=== PATIENT | male | born 1935 | race Caucasian/White ===

== ENCOUNTER 2017-01-08 12:19 | Day surgery (SDC) | payer MEDICARE, OTHER ==
[2017-01-08] MEDS ORDERED: SODIUM CHLORID 0.9% 500 ML IV PRN (13:00)
[2017-01-08] MEDS ORDERED: INSULIN HUMAN REGULAR 1,000 UNITS/10 ML VIAL SQ PRN (13:00)
[2017-01-08] MEDS ORDERED: LACTATED RINGER'S 1000 ML IV PRN (13:00)
[2017-01-08] MEDS ORDERED: POVIDONE IODINE 5% (ANTISEPSIS KIT) 4 APPLICATIONS EACH NARE PRN (13:00)
[2017-01-08] MEDS ORDERED: ceFAZolin 2 GM PREMIX 50 ML IV SCH (13:00)
[2017-01-08] MEDS ORDERED: CHLORHEXIDINE GLUCONATE 2 % 1 PACK (2 CLOTHS) TOPICAL PRN (13:00)
[2017-01-08] MEDS ORDERED: METOPROLOL TARTRATE 25 MG TAB PO PRN (13:00)
[2017-01-08] MEDS ORDERED: APIX5TAB PO (13:42)
[2017-01-08] MEDS ORDERED: LORA10TA PO (13:42)
[2017-01-08] MEDS ORDERED: ATEN25TA PO (13:42)
[2017-01-08] MEDS ORDERED: AMIO200T PO (13:42)
[2017-01-08] MEDS ORDERED: METF500T PO (13:42)
[2017-01-08] MEDS ORDERED: NASA5.2S2 EACH NARE (13:42)
[2017-01-08] MEDS ORDERED: SIMV20TA PO (13:42)
[2017-01-08] MEDS ORDERED: LISI40TA PO (13:42)
--- NOTE | 2017-01-09 06:05 | EKG ---
Date Performed: 01/08/2017 Time Performed: 14:27:18 PTAGE: 81 years EKG: Sinus bradycardia with PAC(s) with 1st degree A-V block. Prolonged QT interval Abnormal R w ave progression Inferior/lateral ST-T changes are nonspecific Abnormal ECG PREVIOUS TRACING : 01/08/2017 12.42 Compared to the previous tracing a fib no longer present DOCTOR: Holly Hernandez Interpretating Date/Time 01/09/2017 06:05:02
--- NOTE | 2017-01-09 06:14 | EKG ---
Date Performed: 01/08/2017 Time Performed: 12:42:00 PTAGE: 81 years EKG: Atrial fibrillation. Prolonged QT interval Poor R wave progression - probable normal varian t Inferior/lateral T wave changes are nonspecific Abnormal ECG NO PREVIOUS TRACING DOCTOR: Holly Hernandez Interpretating Date/Time 01/09/2017 06:14:30
--- NOTE | 2017-01-09 13:30 | CF ---
cc: MALIHA CALDERÓN M.D. DATE 01/08/2017 PREOPERATIVE DIAGNOSIS 1. Mitral regurgitation 2. Atrial fibrillation CONSENT A full informed consent was obtained prior to the procedure. The risks of , bleeding, perforation, aspiration, foreseen and unforeseen complications were reviewed. The patient fully appeared to understand the risks. PROCEDURE 1. CRISTIANO 2. Cardioversion PROCEDURAL STATEMENT The patient was prepped and draped in the usual manner. The patient underwent a full CRISTIANO. Following this, the patient had a cardioversion. FINDINGS There was evidence of mild to moderate mitral regurgitation with evidence of mild mitral prolapse. There was evidence of mild left atrial enlargement. The aortic valve was trileaflet. There was evidence of trace aortic regurgitation. LV function was normal. The interventricular septum intact. The intraatrial septum intact. The right ventricle and right atrium not enlarged. Doppler study showed mild to moderate mitral regurgitation. The left atrial appendage was free of thrombus. CONCLUSION 1. Left atrial appendage clear of thrombus. 2. Mild to moderate mitral regurgitation. PLAN Proceed with cardioversion. Maliha Calderón MD, FRCP,FACC OCTAVIO/TIMOTHY /2:22 PM /1:15 PM
--- NOTE | 2017-01-09 13:30 | MR ---
cc: MALIHA CALDERÓN M.D. DATE: 01/08/2017 PROCEDURE Cardioversion. INDICATION Atrial fibrillation. PROCEDURE Following a CRISTIANO the left atrial appendage is free of thrombus. This patient was given a 200 joule synchronized shock. The patient converted to sinus bradycardia with PACs. CONCLUSION Successful cardioversion to sinus bradycardia with PACs. Maliha Calderón MD, FRCP,[facility]/BT /2:24 PM /1:19 PM
== END 2017-01-08 14:32 | disposition home or self-care (01) ==
LOC: HDIC 12:19 → HSDC 12:19
PROVIDERS: ATTEND Internal Medicine Cardiovascular Disease
DX: I48.91 Unspecified atrial fibrillation (principal); I34.0 Nonrheumatic mitral (valve) insufficiency; R01.1 Cardiac murmur, unspecified; I10 Essential (primary) hypertension; E78.5 Hyperlipidemia, unspecified; E11.9 Type 2 diabetes mellitus without complications; K58.9 Irritable bowel syndrome, unspecified; J30.9 Allergic rhinitis, unspecified
CPT/HCPCS: 00410; 92960; 93005; 93312; 93320; 93325; J0690

== ENCOUNTER 2017-02-04 21:39 | Emergency (ER) | payer MEDICARE, OTHER ==
[~2017-02-04] VITALS: Ht 172.7 cm; Wt 80.0 kg
[~2017-02-04 21:39] MED LIST: AMIO200T PO; APIX5TAB PO; ATEN25TA PO; LISI40TA PO; LORA10TA PO; METF500T PO; NASA5.2S2 EACH NARE; SIMV20TA PO
[2017-02-04 21:43] VITALS: BP 138/68; PULSE 54; RESP 18; TEMP 98.1; O2SAT 96
[2017-02-04 22:03] VITALS: BP 141/65; PULSE 56; RESP 16; O2SAT 97
--- NOTE | 2017-02-04 22:15 | PD ---
HPI Chief Complaint: General Weakness Time Seen by Provider: 21:56 Travel History International Travel<30 days: No Contact w/Intl Traveler<30days: No Traveled to known affect area: No History of Present Illness HPI This 81-year-old male says he was swimming laps. He swam his last flap and then he felt extremely weak. he was unable to stand up both of his legs were weak and he had no energy. He rested and then he felt okay and was able to get up. He says he has not been feeling well for some time and is undergoing tests with Dr. hernandez. He is known for a long time that he has a heart murmur. On January 08 he had cardioversion done and was converted from atrial fibrillation to sinus rhythm. He is undergoing a series of tests with Dr. Moran an appointment tomorrow. He did not have any chest pain PFSH Past Medical History Hx Anticoagulant Therapy: Yes (ELIQUIS) Cardiovascular Problems: Yes (AFIB) Diabetes: Yes Social History Tobacco Use: No Allergies-Medications (Allergen,Severity, Reaction): Coded Allergies: No Known Allergies (Unverified , 02/04/17) Reported Meds & Prescriptions Reported Meds & Active Scripts Active Reported Metformin (Metformin HCl) 500 Mg Tab 500 Mg PO BIDPC With meals Nasalcrom Nasal Inh (Cromolyn Nasal Inh) 5.2 Mg/Act Cecilia 2 Cecilia EACH NARE QID 1 spray per nostril Loratadine 10 Mg Tab 10 Mg PO DAILY Lisinopril 40 Mg Tab 40 Mg PO DAILY Simvastatin 20 Mg Tab 20 Mg PO DAILY Atenolol 25 Mg Tab 25 Mg PO DAILY Amiodarone (Amiodarone HCl) 200 Mg Tab 200 Mg PO BID Eliquis (Apixaban) 5 Mg Tab 5 Mg PO BID Review of Systems General / Constitutional: No: Fever, Chills HENT: No: Headaches, Vertigo Cardiovascular: No: Chest Pain or Discomfort, Palpitations Respiratory: No: Cough, Shortness of Breath Gastrointestinal: No: Nausea, Vomiting Genitourinary: No: Frequency, Dysuria Musculoskeletal: No: Myalgias, Arthralgias Skin: No Rash, No Itching Neurologic: Positive: Weakness, No: Syncope, Focal Abnormalities Hematologic/Lymphatic: No: Easy Bruising Physical Exam Narrative GENERAL: Well-developed male SKIN: Focused skin assessment warm/dry. HEAD: Atraumatic. Normocephalic. EYES: Pupils equal and round. No scleral icterus. No injection or drainage. ENT: No nasal bleeding or discharge. Mucous membranes pink and moist. NECK: Trachea midline. No JVD. CARDIOVASCULAR: Regular rate and rhythm. There is a loud systolic murmur RESPIRATORY: No accessory muscle use. Clear to auscultation. Breath sounds equal bilaterally. GASTROINTESTINAL: Abdomen soft, non-tender, nondistended. Hepatic and splenic margins not palpable. MUSCULOSKELETAL: No obvious deformities. No clubbing. No cyanosis. Trace edema bilaterally. NEUROLOGICAL: Awake and alert. No obvious cranial nerve deficits. Motor grossly within normal limits. Normal speech. PSYCHIATRIC: Appropriate mood and affect; insight and judgment normal. Data Data Last Documented VS Vital Signs Date Time Temp Pulse Resp B/P Pulse Ox O2 Delivery O2 Flow Rate FiO2 02/04/17 23:10 52 16 127/58 95 Room Air 02/04/17 21:43 98.1 Orders Electrocardiogram (02/04/17 22:12) Complete Blood Count With Diff (02/04/17 22:12) Comprehensive Metabolic Panel (02/04/17 22:12) Troponin I (02/04/17 22:12) B-Type Natriuretic Peptide (02/04/17 22:12) Magnesium (Mg) (02/04/17 22:12) Thyroid Stimulating Hormone (02/04/17 22:12) Labs Laboratory Tests Test 02/04/17 22:58 White Blood Count 11.9 TH/MM3 Red Blood Count 4.17 MIL/MM3 Hemoglobin 13.5 GM/DL Hematocrit 39.8 % Mean Corpuscular Volume 95.3 FL Mean Corpuscular Hemoglobin 32.3 PG Mean Corpuscular Hemoglobin 33.8 % Concent Red Cell Distribution Width 13.0 % Platelet Count 155 TH/MM3 Mean Platelet Volume 8.6 FL Neutrophils (%) (Auto) 77.5 % Lymphocytes (%) (Auto) 12.1 % Monocytes (%) (Auto) 8.7 % Eosinophils (%) (Auto) 0.9 % Basophils (%) (Auto) 0.8 % Neutrophils # (Auto) 9.3 TH/MM3 Lymphocytes # (Auto) 1.4 TH/MM3 Monocytes # (Auto) 1.0 TH/MM3 Eosinophils # (Auto) 0.1 TH/MM3 Basophils # (Auto) 0.1 TH/MM3 CBC Comment DIFF FINAL Differential Comment Sodium Level 140 MEQ/L Potassium Level 4.0 MEQ/L Chloride Level 106 MEQ/L Carbon Dioxide Level 25.3 MEQ/L Anion Gap 9 MEQ/L Blood Urea Nitrogen 22 MG/DL Creatinine 0.96 MG/DL Estimat Glomerular Filtration 75 ML/MIN Rate Random Glucose 137 MG/DL Calcium Level 8.7 MG/DL Magnesium Level 2.4 MG/DL Total Bilirubin 0.7 MG/DL Aspartate Amino Transf 22 U/L (AST/SGOT) Alanine Aminotransferase 39 U/L (ALT/SGPT) Alkaline Phosphatase 70 U/L Troponin I LESS THAN 0.02 NG/ML B-Type Natriuretic Peptide 226 PG/ML Total Protein 6.8 GM/DL Albumin 3.4 GM/DL Thyroid Stimulating Hormone 2.390 uIU/ML 3rd Gen [facility] Medical Decision Making Medical Screen Exam Complete: Yes Emergency Medical Condition: Yes Medical Record Reviewed: Yes Differential Diagnosis Differential includes dysrhythmia, electrolyte imbalance, Narrative Course EKG shows sinus bradycardia at a rate of 50. It is unchanged from previous EKGs. Electrolytes are normal. Troponin is normal. BNP is 200. I have given the patient copies of his EKG and lab work to take with him. He has an appointment with Dr. Zapien tomorrow. Etiology for his episode of weakness is not clear but it has resolved. Diagnosis Primary Impression: Generalized weakness Additional Instructions: Follow-up with Dr. ZAPIEN tomorrow Disposition: 01 DISCHARGE HOME Condition: Stable Erickson Eid MD Feb 04, 2017 22:15
[2017-02-04 23:10] VITALS: BP 127/58; PULSE 52; RESP 16; O2SAT 95
[2017-02-04 23:10] LABS: AUTOMATED NEUTROPHIL # 9.3 TH/MM3 (1.8-7.7); BASOPHIL # 0.1 TH/MM3 (0-0.2); BASOPHIL % 0.8 % (0.0-2.0); EOSINOPHIL # 0.1 TH/MM3 (0-0.4); EOSINOPHIL % 0.9 % (0.0-4.0); HEMATOCRIT 39.8 % (39.0-51.0); HEMO FLAGS DIFF FINAL; LYMPH % 12.1 % (9.0-44.0); LYMPHOCYTE # 1.4 TH/MM3 (1.0-4.8); MEAN CELL VOLUME 95.3 FL (80.0-100.0); MEAN CORPUSCULAR HEMOGLOBIN 32.3 PG (27.0-34.0); MEAN CORPUSCULAR HGB CONC 33.8 % (32.0-36.0); MONO % 8.7 % (0.0-8.0); NEUT % 77.5 % (16.0-70.0); PLATELET COUNT 155 TH/MM3 (150-450); RED BLOOD COUNT 4.17 MIL/MM3 (4.50-5.90); WHITE BLOOD COUNT 11.9 TH/MM3 (4.0-11.0)
[2017-02-04 23:19] LABS: CHLORIDE 106 MEQ/L (98-107); SODIUM (NA) 140 MEQ/L (136-145)
[2017-02-04 23:22] LABS: ANION GAP 9 MEQ/L (5-15); BICARBONATE 25.3 MEQ/L (21.0-32.0); BLOOD UREA NITROGEN 22 MG/DL (7-18); MAGNESIUM 2.4 MG/DL (1.5-2.5)
[2017-02-04 23:25] LABS: ALT (GPT) 39 U/L (12-78); AST (GOT) 22 U/L (15-37); GLOMERULAR FILTRATION RATE 75 ML/MIN (>89)
[2017-02-04 23:27] LABS: TOTAL BILIRUBIN ADULT 0.7 MG/DL (0.2-1.0)
[2017-02-04 23:28] LABS: ALKALINE PHOSPHATASE 70 U/L (45-117)
--- NOTE | 2017-02-06 20:19 | EKG ---
Date Performed: 02/04/2017 Time Performed: 22:23:44 PTAGE: 81 years EKG: Sinus bradycardia. Prolonged QT interval Leftward axis ST junctional depression is nonspeci fic Borderline ECG PREVIOUS TRACING : 01/08/2017 14.27 Compared to the previous tracing, previously sinus bradycar gui with PACs DOCTOR: Mk Bryan Interpretating Date/Time 02/06/2017 20:18:03
== END 2017-02-05 00:14 | disposition home or self-care (01) ==
LOC: PHED 21:39
DX: R53.1 Weakness (principal); R00.1 Bradycardia, unspecified; I45.81 Long QT syndrome; I48.91 Unspecified atrial fibrillation; E11.9 Type 2 diabetes mellitus without complications; Z79.01 Long term (current) use of anticoagulants
CPT/HCPCS: 80053; 83735; 83880; 84443; 84484; 85025; 93005